=== PATIENT | female | born 1975 | race Caucasian/White ===

== ENCOUNTER 2021-02-19 11:08 | Outpatient (CLI) | payer BC, OTHER | END 2021-02-19 11:09 | disposition home or self-care (01) | LOC: BICRAD 11:08 | PROVIDERS: ATTEND Specialist | DX: M54.9 Dorsalgia, unspecified (principal); M54.2 Cervicalgia; V89.9XXD Person injured in unspecified vehicle accident, subsequent encounter; Z98.890 Other specified postprocedural states | CPT/HCPCS: 72040; 72100 ==

== ENCOUNTER 2023-12-18 10:53 | Outpatient (CLI) | payer BC | END 2023-12-18 10:54 | disposition home or self-care (01) | LOC: BICMAMMO 10:53 | PROVIDERS: ATTEND Family Medicine | DX: Z12.31 Encounter for screening mammogram for malignant neoplasm of breast (principal) | CPT/HCPCS: 77063; 77067 ==